=== PATIENT | female | born 1995 | race African-American/Black ===

== ENCOUNTER 2019-06-09 18:41 | Inpatient (IN) | payer OTHER ==
[2019-06-09 19:29] VITALS: BMI 32.7
[2019-06-09] MEDS ORDERED: Misoprostol 200 MCG TAB PR PRN (19:41)
[2019-06-09] MEDS ORDERED: NS / Oxytocin 40 units/1000ml 1,000 ML IV PRN (19:41)
[2019-06-09] MEDS ORDERED: Diphenoxylate HCl/Atropine Tablet PO PRN ×2 (19:41)
[2019-06-09] MEDS ORDERED: Lidocaine 1% (PF) 30 ML VIAL SC PRN (19:41)
[2019-06-09] MEDS ORDERED: Butorphanol Tartrate 1 MG/ML VIAL SLOW IVP PRN (19:41)
[2019-06-09] MEDS ORDERED: Carboprost 250 MCG/ML AMP IM PRN (19:41)
[2019-06-09] MEDS ORDERED: Docusate 100 MG CAP PO PRN (19:41)
[2019-06-09] MEDS ORDERED: Zolpidem Tartrate 5 MG TAB PO PRN (19:41)
[2019-06-09] MEDS ORDERED: Ondansetron PF 4 MG/2 ML Vial IVP PRN (19:41)
[2019-06-09] MEDS ORDERED: Promethazine HCl 25 MG/ML VIAL IM PRN (19:41)
[2019-06-09] MEDS ORDERED: HYDROcodone/Acetaminophen 5/325 mg Tablet PO PRN ×2 (19:41)
[2019-06-09] MEDS ORDERED: Ibuprofen 800 MG TAB PO PRN (19:41)
[2019-06-09] MEDS ORDERED: Penicillin G Potassium 5 MILL.UNITS in Sodium Chloride 0.9% 100 ML IVPB SCH (19:45)
[2019-06-09] MEDS ORDERED: NS w/ Oxytocin 10 units 500 ML IV SCH (19:45)
--- NOTE | 2019-06-09 20:01 | PDOC.LDHP ---
Labor and Delivery H&P HPI: 24 y/o at 37 and 1/7 weeks, accepted as a late transfer of care from the clinic. She also had seen MFM in [place] by tele-medicine - but decided to stop going (non-compliant) around the time she began seeing me. Patient has had normal BPs from 23-29 weeks per her records, and then began developing what appears to be Gestational Hypertension. Today in clinic BPP 01/13, but patient did not comply with leaving a urine sample, although we offered to test urine from 3 to 5pm at her convenience. Her BP her was high at 150s/100-110s - and appears to be increasing. Patient stated she lost her job this week, and her recently purchased car needs a new battery and insurance. She left prior to completing her visit - and before a cervical check. She was reached by telephone and asked to go to L&D at her earliest convenience for further evaluation and probable induction of labor based on today's findings. Last week - 37 week induction was declined, despite [facility] [place] guidelines that were carefully reviewed. Current gestational age (weeks): 37 Due date: 06/29/19 Grav: 1 Para: 0 Current complications: gestational hypertension Abnormal US findings: No Current medications: pre-benjamin vitamins Allergies/Adverse Reactions: Allergies Allergy/AdvReac Type Severity Reaction Status Date / Time No Known Allergies Allergy Verified 06/09/19 19:26 Social history: none - Physical Exam Vital signs reviewed and normal: yes General: NAD, resting Heart: RRR Lungs: CTAB Abdomen: NTTP Extremeties: no edema FHT: category 1 - Assessment L&D Assessment: medically indicated induction - Plan Plan: admit to L&D, cervical ripening
[2019-06-09] MEDS: Lactated Ringer's 1,000 ML IV SCH (20:09)
[2019-06-09 20:25] LABS: Hemoglobin 10.4 g/dL (12.0-16.0); Mean Corpuscular HGB CONC 32.9 g/dL (32.0-36.0); Mean Corpuscular Hemoglobin 24.9 pg (27.0-31.0); Mean Corpuscular Volume 75.7 fL (78.0-98.0); Mean Platelet Volume 10.7 fL (7.4-10.4); Platelet Count 141 thou/uL (130-400); RBC Distribution Width 14.5 % (11.5-14.5); Red Blood Cell (RBC) Count 4.19 mill/uL (4.20-5.40)
[2019-06-09] MEDS: Misoprostol 100 MCG TAB VAG SCH (20:42)
[2019-06-09 20:50] LABS: ALT (SGPT) 13 U/L (8-55); AST (SGOT) 14 U/L (5-34); Albumin 3.6 g/dL (3.5-5.0); Alkaline Phosphatase 127 U/L (40-110); Anion Gap 14 mmol/L (10-20); BUN (Urea Nitrogen) 9 mg/dL (7.0-18.7); Bilirubin, Total 0.2 mg/dL (0.2-1.2); Calc. Creatinine Clearance 201 mL/min (70-130); Calcium 8.9 mg/dL (7.8-10.44); Carbon Dioxide 21 mmol/L (22-29); Chloride 105 mmol/L (98-107); Estimated GFR-MDRD Greater than 90; Globulin 2.6 g/dL (2.4-3.5); Glucose 69 mg/dL (70-105); Potassium 3.9 mmol/L (3.5-5.1); Protein, Total 6.2 g/dL (6.0-8.3); Sodium 136 mmol/L (136-145)
[2019-06-09] MEDS: hydrALAZINE 20 MG/ML VIAL SLOW IVP PRN ×2 (20:54→21:18)
[2019-06-09 20:58] LABS: Syphilis Antibody Nonreactive (Nonreactive); Syphilis Antibody Index 0.01 S/CO (<1.00 Non-Reactive)
[2019-06-09 21:12] LABS: Medtox Reader # READER 4; THC/Cannabinoid Screen Detected (NotDetected)
[2019-06-09 21:13] LABS: Amphetamine Not Detected (NotDetected); Barbiturates Screen Not Detected (NotDetected); Benzodiazepine Screen Not Detected (NotDetected); Cocaine Metabolite Screen Not Detected (NotDetected); Medtox Control Line Valid? VALID (VALID); Methadone Not Detected (NotDetected); Methamphetamine Not Detected (NotDetected); Opiate Screen Not Detected (NotDetected); Oxycodone Screen Not Detected (NotDetected); Phencyclidine (PCP) Not Detected (NotDetected); Tricyclic Screen Not Detected (NotDetected)
[2019-06-09 21:15] LABS: Creatinine, Urine 38.06 mg/dL (47-110); Protein, Urine Random Quant Less than 10 mg/dL (1-14)
[2019-06-09] MEDS ORDERED: Calcium Gluc 4.6 MEQ/10 ML (100 MG/ML) SLOW IVP PRN (22:55)
[2019-06-09] MEDS ORDERED: Magnesium Sulfate 20 GM/WATER 500 ML BAG IVPB SCH (23:00)
[2019-06-09] MEDS: Magnesium Sulfate 20 GM in Dextrose 5% in Water 460 ML IV SCH (23:11)
[2019-06-09] MEDS ORDERED: Magnesium Sulfate 20 gm/500 ml 20 GM/500 ML BAG IVPB SCH ×2 (23:15→23:30)
[2019-06-09] MEDS: Acetaminophen 500 MG TAB PO PRN (23:50)
[2019-06-09 23:54] LABS: HBSAg Index 0.12 S/CO (0-0.99); Hep B Surf Ag Non-Reactive S/CO (NonReactive)
[2019-06-10] MEDS: Misoprostol 100 MCG TAB VAG SCH ×2 (00:45→04:37)
[2019-06-10] MEDS: Penicillin G 2.5 MILL.units 2.5 MILL.UNITS in Premix Bag 1 BAG IVPB SCH ×4 (00:45→12:50)
[2019-06-10] MEDS ORDERED: Cepastat Lozenges 1 LOZ PO PRN ×2 (04:21→05:16)
[2019-06-10] MEDS ORDERED: AFRIN NASAL MIST 15 ML BOT NS PRN (05:07)
[2019-06-10] MEDS ORDERED: diphenhydrAMINE 25 MG CAP PO PRN (05:07)
[2019-06-10] MEDS ORDERED: Oxymetazoline HCl 0.05% (30 ML BOT) NS PRN (05:30)
[2019-06-10] MEDS ORDERED: hydrALAZINE 20 MG/ML VIAL ONE ×2 (06:04→09:51)
[2019-06-10] MEDS ORDERED: hydrALAZINE 20 MG/ML VIAL SLOW IVP SCH (06:30)
[2019-06-10] MEDS: Magnesium Sulfate 20 GM in Dextrose 5% in Water 460 ML IV SCH ×2 (07:19→18:18)
[2019-06-10] MEDS: Acetaminophen 500 MG TAB PO PRN ×2 (07:47→10:24)
[2019-06-10] MEDS: hydrALAZINE 20 MG/ML VIAL SLOW IVP PRN (08:31)
[2019-06-10] MEDS ORDERED: Ondansetron PF 4 MG/2 ML Vial ONE (13:31)
[2019-06-10] MEDS ORDERED: Oxytocin 10 UNITS/ML VIAL ONE ×2 (13:31→14:40)
[2019-06-10] MEDS ORDERED: Dexamethasone 4 mg/ml Vial ONE (13:31)
[2019-06-10] MEDS ORDERED: MORPHINE 5 MG/10 ML PF VIAL ONE (13:32)
[2019-06-10] MEDS ORDERED: Bicitra 30 ML UDCUP ONE (13:45)
[2019-06-10] MEDS ORDERED: CEFAZOLIN 2 GM in Premix Bag 1 BAG IVPB SCH (14:00)
[2019-06-10] MEDS ORDERED: Bicitra 30 ML UDCUP PO SCH (14:00)
[2019-06-10] MEDS ORDERED: PHENYLEPHRINE-NS 100 MCG/ML 10 ML SYRINGE ONE (14:16)
[2019-06-10] MEDS ORDERED: ePHEDrine/0.9% NaCl/PF SYRINGE 50 mg/10 ml ONE (14:16)
[2019-06-10] MEDS ORDERED: Midazolam HCl 2 mg/2 ml Vial ONE (14:46)
[2019-06-10] MEDS ORDERED: Ondansetron PF 4 MG/2 ML Vial IVP PRN ×3 (15:22→21:54)
[2019-06-10] MEDS ORDERED: Promethazine HCl 25 MG SUPP PR PRN ×2 (15:22→21:54)
[2019-06-10] MEDS ORDERED: diphenhydrAMINE 50 MG/ML VIAL IVP PRN ×2 (15:22→21:54)
[2019-06-10] MEDS ORDERED: Naloxone HCl 0.4 mg/ml Vial IV PRN ×2 (15:22→21:54)
[2019-06-10] MEDS ORDERED: Naloxone HCl 0.4 mg/ml Vial IVP PRN ×4 (15:22→21:54)
[2019-06-10] MEDS ORDERED: Promethazine HCl 25 MG/ML VIAL IM PRN ×3 (15:22→21:54)
[2019-06-10] MEDS ORDERED: Communication Order-Pharmacy FS SCH ×2 (15:30→22:00)
[2019-06-10] MEDS ORDERED: hydrALAZINE 20 MG/ML VIAL SLOW IVP PRN (15:45)
[2019-06-10] MEDS ORDERED: Bisacodyl 10 MG SUPP PR PRN (15:45)
[2019-06-10] MEDS ORDERED: Lanolin Ointment 7 GM TUBE TOP PRN (15:45)
[2019-06-10] MEDS ORDERED: Misoprostol 200 MCG TAB PR PRN (15:45)
[2019-06-10] MEDS ORDERED: NS / Oxytocin 40 units/1000ml 1,000 ML IV SCH (15:45)
[2019-06-10] MEDS ORDERED: Methylergonovine 0.2 MG/ML VIAL IM PRN (15:45)
[2019-06-10] MEDS ORDERED: Ketorolac Tromethamine 30 MG/ML VIAL ONE (17:40)
[2019-06-10] MEDS: Ketorolac Tromethamine 30 MG/ML VIAL IVP PRN (17:41)
[2019-06-10] MEDS: Lactated Ringer's 1,000 ML IV SCH ×2 (17:55→17:56)
[2019-06-10] MEDS: NS w/ Oxytocin 10 units 500 ML IV SCH (17:56)
--- NOTE | 2019-06-10 21:32 | OP ---
DATE OF PROCEDURE: 06/10/2019 TIME OF OPERATION: At 1432 central standard time. PREOPERATIVE DIAGNOSES: Intrauterine at 38 weeks with gestational hypertension with superimposed preeclampsia. POSTOPERATIVE DIAGNOSES: Intrauterine at 38 weeks with gestational hypertension with superimposed preeclampsia. Failed induction. PROCEDURE PERFORMED: Primary low-transverse section. FINDINGS: Viable male infant weighing 2577 g or 5 pounds 11 ounces, Apgars 6 and 9. QUANTITATIVE BLOOD LOSS: 507 mL. COMPLICATIONS: None. DETAILS OF THE PROCEDURE: The patient was consented and taken back to the operating room where spinal anesthesia was found to be adequate. She was then prepped and draped in the normal sterile fashion. A timeout was performed by the entire operative team. The incision was then marked with a marking pen tested using sharp pickups. An incision was then made with a scalpel. The incision was carried through the adipose tissue down to the underlying rectus fascia using both sharp dissection as well as cautery. Once the fascia was identified, it was incised in the midline and then the fascial incision was carried through in both lateral directions using sharp as well as cautery dissection techniques. Next, the superior aspect of the rectus fascia was grasped with 2 Faraz clamps, which was tented up and the rectus muscles were dissected off using blunt dissection as well as cautery dissection. Similarly, the inferior aspect of the fascial incision was grasped with 2 Faraz clamps, tented up and the rectus muscles were dissected off bluntly as well as sharply. Next, the rectus muscles were in the midline and the peritoneum identified. The peritoneum was then carefully grasped with 2 hemostats and entered sharply. The peritoneal incision was extended superiorly and inferiorly and bladder blade was placed in the lower abdomen. At this point, the uterus was identified and the bladder flap was then developed using pickups with teeth as well as Metzenbaum scissors in both lateral directions. The bladder flap was then dissected downwards using the rope laying machine operator's finger as well as Metzenbaum scissors. The bladder blade was replaced. The lower uterine segment was then identified and entered sharply using a clean scalpel. The uterine incision was then dissected downwards until thin layer of muscle remained and this was entered bluntly using a hemostat to avoid any injury to the baby. The uterine incision was then stretched using two fingers in both lateral directions. An amniotomy was performed artificially using a hemostat and the baby was delivered using fundal pressure in a gentle fashion. Once out, the baby's mouth and nose were bulb suctioned, cord clamped and cut, and the baby was handed to waiting attendants. Next, the uterus was exteriorized, cleared of all clots and debris and the uterine incision was repaired with #1 Monocryl in a running locking fashion. A 2nd suture of the same type was used to obtain complete hemostasis at the uterine incision. The bladder flap was reapproximated using 3-0 Monocryl. Next, patient's left and right adnexa were inspected and appeared to be within normal limits. The posterior cul-de-sac was blotted dry and hemostasis assured. One more look at the uterine incision demonstrated hemostasis. Next, the uterus was replaced back within the abdomen. The peritoneum was reapproximated using 2-0 Monocryl without difficulty. The rectus muscles were then allowed to come back together and 0 chromic was used to aid in reapproximation of the muscle as necessary. The rectus fascia was then reapproximated in a running fashion using 0 Vicryl suture. The adipose tissue was then examined and appeared to be well approximated without any obvious separations. Finally, the skin was reapproximated with 3-0 Monocryl on a Aj needle without difficulty and Dermabond adhesive was applied to the skin. Once the glue was dry, the drapes were removed and the patient was transferred to an ambulatory bed where she was taken to recovery awake and in stable condition. Sponge, lap, and needle counts were correct x3. Job ID: [id number]
[2019-06-10] MEDS ORDERED: HYDROmorphone 2 MG/ML VIAL SLOW IVP PRN (21:54)
[2019-06-10] MEDS ORDERED: L&D-Morphine 4 MG/ML VIAL SLOW IVP PRN (21:54)
[2019-06-10] MEDS ORDERED: Meperidine HCl/PF 25 MG/ML VIAL SLOW IVP PRN (21:54)
[2019-06-10] MEDS ORDERED: Ketorolac Tromethamine 30 MG/ML VIAL IVP PRN (21:54)
[2019-06-10] MEDS ORDERED: Ondansetron HCl/PF 4 MG/2 ML Vial IVP PRN (21:54)
[2019-06-10] MEDS ORDERED: Meperidine HCl/PF 25 MG/ML VIAL ONE (22:16)
[2019-06-11] MEDS ORDERED: HYDROcodone/Acetaminophen 5/325 mg Tablet PO PRN ×3 (03:30→10:00)
[2019-06-11] MEDS: Magnesium Sulfate 20 GM in Dextrose 5% in Water 460 ML IV SCH (04:05)
[2019-06-11] MEDS: Docusate Calcium (SURFAK) 240 MG CAP PO SCH ×3 (06:35→20:49)
[2019-06-11 07:29] LABS: Hemoglobin 7.8 g/dL (12.0-16.0); Mean Corpuscular HGB CONC 33.3 g/dL (32.0-36.0); Mean Corpuscular Hemoglobin 25.6 pg (27.0-31.0); Mean Corpuscular Volume 76.9 fL (78.0-98.0); Mean Platelet Volume 11.3 fL (7.4-10.4); Platelet Count 125 thou/uL (130-400); RBC Distribution Width 14.5 % (11.5-14.5); Red Blood Cell (RBC) Count 3.05 mill/uL (4.20-5.40); White Blood Cell (WBC) Count 12.5 thou/uL (4.8-10.8)
[2019-06-11] MEDS ORDERED: Varicella virus, LIVE 0.5 ML VIAL SC ONE (09:00)
[2019-06-11] MEDS ORDERED: Adacel (T-DAP) 0.5 ML SYRINGE IM ONE (09:00)
[2019-06-11] MEDS ORDERED: Measles/Mumps/Rubella 10 MCG/0.5 ML VIAL SC ONE (09:00)
[2019-06-11] MEDS: Ketorolac Tromethamine 30 MG/ML VIAL IVP PRN (09:16)
[2019-06-11] MEDS: Lactated Ringer's 1,000 ML IV SCH ×2 (11:03→12:07)
[2019-06-11] MEDS: NS w/ Oxytocin 10 units 500 ML IV SCH (11:03)
[2019-06-11] MEDS: HYDROcodone/Acetaminophen 5/325 mg Tablet PO PRN ×3 (11:04→21:21)
[2019-06-11] MEDS ORDERED: Meperidine HCl/PF 25 MG/ML VIAL IM PRN (12:06)
[2019-06-11] MEDS ORDERED: Simethicone Chewable 80 MG TAB PO PRN (12:06)
[2019-06-11] MEDS ORDERED: Promethazine HCl 25 MG/ML VIAL IM PRN (12:08)
[2019-06-11] MEDS ORDERED: Meperidine HCl/PF 25 MG/ML VIAL ONE (12:24)
[2019-06-11] MEDS: Simethicone Chewable 80 MG TAB PO PRN ×3 (12:28→21:22)
[2019-06-11] MEDS: Ibuprofen 800 MG TAB PO SCH (20:49)
[2019-06-12] MEDS: Docusate Calcium (SURFAK) 240 MG CAP PO SCH ×2 (07:38→22:17)
[2019-06-12] MEDS: Ibuprofen 800 MG TAB PO SCH ×3 (07:38→22:17)
[2019-06-12] MEDS: HYDROcodone/Acetaminophen 5/325 mg Tablet PO PRN ×4 (08:14→22:15)
[2019-06-12] MEDS ORDERED: Sodium Chloride 0.9% 10 ML ONE (08:32)
[2019-06-12] MEDS: Simethicone Chewable 80 MG TAB PO PRN ×2 (12:51→22:18)
[2019-06-12] MEDS: Penicillin G 2.5 MILL.units 2.5 MILL.UNITS in Premix Bag 1 BAG IVPB SCH (19:38)
[2019-06-12] MEDS: Lactated Ringer's 1,000 ML IV SCH (19:41)
--- NOTE | 2019-06-12 21:50 | PDOC.PP ---
Post Progress Note Post Day #: 2 PO intake tolerated: yes Flatus: yes Ambulation: yes Vital Signs (12 hours) Temp Pulse Resp BP Pulse Ox 06/12/19 20:36 98.8 F 115 H 16 138/81 98 06/12/19 16:55 97.8 F 114 H 18 140/89 06/12/19 12:32 98.5 F 100 15 144/74 H 99 Weight Weight 209 lb - Physical Examination General: NAD Cardiovascular: no m/r/g, RRR Respiratory: clear to auscultation bilaterally, non-labored breathing Abdominal: + bowel sounds, lochia, no distention Extremities: negative homans (B) Skin: CS incision dry & intact, no rash Neurological: no gross focal deficits Psychiatric: A&Ox3, normal affect Result Diagrams: 06/11/19 07:15 06/09/19 20:11 Additional Labs: Post Labs Blood Type O NEGATIVE 06/09/19 21:55 Hep Bs Antigen Non-Reactive S/CO (NonReactive) 06/09/19 20:11
[2019-06-13] MEDS: Ibuprofen 800 MG TAB PO SCH ×3 (05:34→21:42)
[2019-06-13] MEDS: HYDROcodone/Acetaminophen 5/325 mg Tablet PO PRN ×2 (08:33→12:52)
[2019-06-13] MEDS: Docusate Calcium (SURFAK) 240 MG CAP PO SCH ×2 (09:34→21:42)
[2019-06-13] MEDS: Simethicone Chewable 80 MG TAB PO PRN (12:53)
[2019-06-14] MEDS: HYDROcodone/Acetaminophen 5/325 mg Tablet PO PRN (00:21)
[2019-06-14] MEDS: Ibuprofen 800 MG TAB PO SCH ×3 (05:11→23:19)
[2019-06-14] MEDS: Misoprostol 100 MCG TAB VAG SCH (07:41)
[2019-06-14] MEDS: Docusate Calcium (SURFAK) 240 MG CAP PO SCH ×2 (08:39→23:19)
[2019-06-14] MEDS: Simethicone Chewable 80 MG TAB PO PRN (08:39)
[2019-06-14] MEDS: Acetaminophen 500 MG TAB PO PRN (18:55)
[2019-06-14] MEDS ORDERED: NIFEdipine XL 30 MG TAB PO SCH (20:00)
[2019-06-14 20:59] VITALS: TEMP 98.9
[2019-06-14 23:26] VITALS: BP 138/79
[2019-06-15] MEDS ORDERED: NIFEdipine XL 30 MG TAB PO SCH (09:00)
== END 2019-06-14 22:50 | disposition home or self-care (01) | DRG 788 ==
LOC: L&D/OP 18:41 → L&D 19:41 → 3SW 06-12 08:23
PROVIDERS: ADMIT Obstetrics & Gynecology; ATTEND Obstetrics & Gynecology
PROC: 10D00Z1 Extraction of Products of Conception, Low, Open Approach (ICD-10-PCS; principal; 2019-06-10)
DX: O13.4 Gestational [pregnancy-induced] hypertension without significant proteinuria, complicating childbirth (principal); Z3A.37 37 weeks gestation of pregnancy; Z37.0 Single live birth
CPT/HCPCS: 36415; 51702; 80053; 80306; 82570; 84156; 85027; 86780; 86850; 86870; 86900; 86901; 87340; 88307; 99283; J0360; J0690; J1100; J1885; J2175; J2250; J2274; J2405; J2540; J2550; J2590; J3475; J3490; J7070; Q0163

== ENCOUNTER 2022-03-18 15:49 | Emergency (ER) | payer OTHER ==
[~2022-03-18 15:49] MED LIST: Iopamidol 370 76% 50 ML VIAL FS ONE
[2022-03-18] MEDS ORDERED: Ketorolac Tromethamine 30 MG/ML VIAL ONE (17:49)
[2022-03-18] MEDS ORDERED: Ondansetron PF 4 MG/2 ML Vial ONE (17:49)
[2022-03-18 17:51] LABS: Hemoglobin 14.1 g/dL (12.0-16.0); Mean Corpuscular HGB CONC 32.1 g/dL (32.0-36.0); Mean Corpuscular Hemoglobin 24.7 pg (27.0-31.0); Mean Corpuscular Volume 76.8 fL (78.0-98.0); Mean Platelet Volume 12.5 fL (7.4-10.4); Platelet Count 153 thou/uL (130-400); RBC Distribution Width 14.9 % (11.5-14.5); Red Blood Cell (RBC) Count 5.71 mill/uL (4.20-5.40); White Blood Cell (WBC) Count 14.1 thou/uL (4.8-10.8)
[2022-03-18 17:59] LABS: BHCG - Serum Negative (NEGATIVE); Pregs Control Background? CLEAR/WHITE (CLR/WHITE); Pregs Control Bar Appear? YES (CONTROL BAR)
[2022-03-18 18:06] LABS: ALT (SGPT) 9 U/L (8-55); AST (SGOT) 17 U/L (5-34); Albumin 5.3 g/dL (3.5-5.0); Alkaline Phosphatase 92 U/L (40-110); Anion Gap 19 mmol/L (10-20); BUN (Urea Nitrogen) 19 mg/dL (7.0-18.7); Bilirubin, Total 0.9 mg/dL (0.2-1.2); Calc. Creatinine Clearance 0 mL/min (70-130); Calcium 10.5 mg/dL (7.8-10.44); Carbon Dioxide 24 mmol/L (22-29); Chloride 96 mmol/L (98-107); Estimated GFR 63; Globulin 4.2 g/dL (2.4-3.5); Glucose 163 mg/dL (70-105); Lipase 6 U/L (8-78); Potassium 3.4 mmol/L (3.5-5.1); Protein, Total 9.5 g/dL (6.0-8.3); Sodium 136 mmol/L (136-145)
[2022-03-18 18:23] LABS: Band 1 % (5-11); Large Platelets SLIGHT; Lymphocytes 9 % (21-51); MDiff Complete? YES; Microcytosis SLIGHT = 6-15 cells (100X) (0-5/hpf); Monocytes 4 % (0-10); Neutrophil 85 % (42-75); Platelet Morphology Comment Appears Adequate; Polychromasia SLIGHT = 2-3 cells (100X) (0-2/hpf); Reactive Lymphocytes 1 % (0-10)
[2022-03-18] MEDS ORDERED: Promethazine HCl 25 MG in Sodium Chloride 0.9% 50 ML IVPB SCH (19:45)
== END 2022-03-18 20:46 | disposition home or self-care (01) ==
LOC: ERS 15:49
DX: R10.13 Epigastric pain (principal); R11.2 Nausea with vomiting, unspecified; F17.210 Nicotine dependence, cigarettes, uncomplicated
CPT/HCPCS: 36415; 74177; 80053; 83605; 83690; 84703; 85025; 96361; 96374; 96375; J1885; J2405; J2550; Q9967

== ENCOUNTER 2023-12-29 11:25 | Emergency (ER) | payer OTHER ==
[2023-12-29] MEDS ORDERED: Ondansetron ODT 4 MG TAB ONE (12:02)
[2023-12-29 12:29] LABS: #Basophils Less than 0.03 10x3/uL (0.0-0.2); %Basophils 0.3 % (0.0-1.0); %Eosinophils 0.7 % (0.0-10.0); %Lymphocytes 37.4 % (21.0-51.0); %Monocytes 5.3 % (0.0-10.0); %Neutrophils 55.8 % (42.0-75.0); Hematocrit 36.9 % (36.0-47.0); Hemoglobin 11.6 g/dL (12.0-16.0); Mean Corpuscular HGB CONC 31.4 g/dL (32.0-36.0); Mean Corpuscular Hemoglobin 25.2 pg (27.0-31.0); Mean Corpuscular Volume 80.2 fL (78.0-98.0); Mean Platelet Volume 13.6 fL (7.4-10.4); Platelet Count 154 10x3/uL (130-400); RBC Distribution Width 14.9 % (11.5-14.5)
[2023-12-29 12:32] LABS: BHCG - Serum Negative (NEGATIVE); Pregs Control Background? CLEAR/WHITE (CLR/WHITE); Pregs Control Bar Appear? YES (CONTROL BAR)
[2023-12-29 12:40] LABS: ALT (SGPT) 13 U/L (8-55); AST (SGOT) 14 U/L (5-34); Albumin 3.8 g/dL (3.5-5.0); Alkaline Phosphatase 79 U/L (40-110); Anion Gap 10 mmol/L (10-20); BUN (Urea Nitrogen) 6 mg/dL (7.0-18.7); Bilirubin, Total 0.4 mg/dL (0.2-1.2); Calc. Creatinine Clearance 0 mL/min (70-130); Carbon Dioxide 22 mmol/L (22-29); Chloride 109 mmol/L (98-107); Estimated GFR 114; Globulin 2.7 g/dL (2.4-3.5); Glucose 85 mg/dL (70-105); Lipase 12 U/L (8-78); Potassium 3.9 mmol/L (3.5-5.1); Protein, Total 6.5 g/dL (6.0-8.3); Sodium 137 mmol/L (136-145)
[2023-12-29 12:49] LABS: Bacteria/HPF None Seen HPF (None Seen); Bilirubin Negative (Negative); Blood, Urine 2+ (Negative); CAUTI Indications for Culture Pelvic or flank pain; Clarity Clear (Clear); Glucose, Urine (Dipstick) Normal (Negative); Ketone, Urine Negative (Negative); Leukocyte Negative Leu/uL (Negative); Nitrite Negative (Negative); Protein, Urine (Dipstick) Negative (Neg-Trace); RBC/HPF 0-3 HPF (0-3); Specific Gravity, Urine 1.018 (1.002-1.036); Squamous Epithelial 0-3 HPF (0-3); Urobilinogen Normal mg/dL (Less than 2); WBC/HPF 0-3 HPF (0-3)
[2023-12-29 12:50] LABS: Urine Culture Reflex No No
[2023-12-29] MEDS ORDERED: Ketorolac Tromethamine 30 MG (1 mL) VIAL ONE (14:18)
== END 2023-12-29 15:07 | disposition home or self-care (01) ==
LOC: ERS 11:25
DX: N83.201 Unspecified ovarian cyst, right side (principal); F17.210 Nicotine dependence, cigarettes, uncomplicated; F17.290 Nicotine dependence, other tobacco product, uncomplicated
CPT/HCPCS: 36415; 76856; 80053; 81001; 83690; 84703; 85025; 93005; 96372; J1885; Q0162